=== PATIENT | female | born 2000 | race Caucasian/White ===

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

== ENCOUNTER 2018-06-17 10:47 | Emergency (ER) | payer BC, OTHER ==
[2018-06-17] MEDS ORDERED: NS 1,000 ML IV ONE (11:15)
[2018-06-17] MEDS ORDERED: fentaNYL 100 MCG/2 ML INJ IVP ONE (11:15)
[2018-06-17] MEDS ORDERED: ONDANSETRON 4 MG/2 ML VIAL IVP ONE (11:15)
[2018-06-17 11:21] LABS: PLATELET COUNT 225 10^3/uL (150-400)
--- NOTE | 2018-06-17 11:21 | EDPHY ---
H & P Stated Complaint: Sudden onset sharp abd pain while sitting in class Time Seen by Provider: 06/17/18 11:02 HPI/ROS: Chief Complaint: Abdominal pain HPI: 17-year-old G0 woman had abrupt onset of right lower quadrant abdominal pain this morning while in class. She does not have a history of the same. Some nausea and vomiting. No diarrhea or constipation. Last menstrual cycle ended 3 weeks ago. She no vaginal discharge or spotting. She is not sexually active. No history of sexually transmitted infections in the past. No urinary urgency or frequency. It is worse when she moves around. It comes in waves. She was in her normal state of health just prior to the onset of pain. At worst is an 8/10. ROS: 10 systems were reviewed and were negative except those elements noted in the HPI. PMH: Denies Social History: No smoking, occasional alcohol, no recreational drug use Family History: non-contributory Physical Exam: Gen: Awake, Alert, No Distress HEENT: Nose: no rhinorrhea Eyes: PERRLA, EOMI Mouth: Moist mucosa Neck: Supple, no JVD Chest: nontender, lungs clear to auscultation Heart: S1, S2 normal, no murmur Abd: Soft, she has tenderness in the right lower quadrant at McBurney's point. Mild right adnexal tenderness, no upper abdominal pain, no left-sided abdominal pain., no guarding Back: no CVA tenderness, no midline tenderness Ext: no edema, non-tender Skin: no rash Neuro: CN II-XII intact, Sensation grossly intact, Strength 5/5 in bilateral upper and lower extremities - Personal History LMP (Females 10-55): 15-21 Days Ago Current Tetanus Diphtheria and Acellular Pertussis (TDAP): Yes - Medical/Surgical History Hx Asthma: No Hx Chronic Respiratory Disease: No Hx Diabetes: No Hx Cardiac Disease: No Hx Renal Disease: No Hx Cirrhosis: No Hx Alcoholism: No Hx HIV/AIDS: No Hx Splenectomy or Spleen Trauma: No Other PMH: denies - Social History Smoking Status: Never smoked Constitutional: Initial Vital Signs Temperature (C) 37.7 C 06/17/18 10:50 Heart Rate 112 H 06/17/18 10:50 Respiratory Rate 18 06/17/18 10:50 Blood Pressure 111/82 H 06/17/18 10:50 O2 Sat (%) 98 06/17/18 10:50 O2 Delivery Mode Room Air Allergies/Adverse Reactions: No Known Allergies Allergy (Verified 06/17/18 10:50) Home Medications: Medication Instructions Recorded Hydrocodone/Acetaminophen 1 - 2 each PO Q4-6PRN PRN #10 06/17/18 [Hydrocodon-Acetaminophen 5-325] tablet Ondansetron Odt [Zofran Odt 4 mg 4 mg PO Q4 PRN #10 tab 06/17/18 (*)] Medical Decision Making - Diagnostics Imaging Results: Imaging Impressions Abdomen Ultrasound 06/17/18 11:14 Impression: Appendix not identified. Findings and recommendations discussed with Emergency Department physician, Mango Smith MD, at 1302 hour, 06/17/2018. Final report concurs with initial preliminary interpretation. Pelvic/Renal Ultrasound 06/17/18 11:14 Impression: 1. Right ovarian complex cystic lesion measuring 2.6 x 2.3 x 1.9 cm which may represent a hemorrhagic cyst, but is nonspecific. 2. No ovarian torsion. 3. Small amount of right lower quadrant free fluid. 4. Consider follow-up ultrasound imaging in 8-12 weeks. Findings and recommendations discussed with Emergency Department physician, Mango Smith MD, at 1306 hour, 06/17/2018. Final report concurs with initial preliminary interpretation. Imaging: Discussed imaging studies w/ mail caller Radiologist ED Course/Re-evaluation: Patient's pain improved after fentanyl. Appendix is not visualized but she does have a right hemorrhagic cyst with some free fluid. I have discussed with her at length that this is most likely the cause of her pain. Cannot entirely rule out appendicitis without a CT scan but I do not think that this is indicated at this time. The patient understands and is comfortable with this plan. Will discharge on anti-inflammatories, referral to OBGYN. Will also discharge with some nausea medication as well. She will return for any concerns. - Data Points Laboratory Results: Laboratory Results 06/17/18 11:00 06/17/18 11:00 06/17/18 06/17/18 11:00 11:00 WBC 11.01 10^3/uL H 10^3/uL (3.80-9.50) RBC 4.74 10^6/uL 10^6/uL (4.18-5.33) Hgb 15.5 g/dL g/dL (12.6-16.3) Hct 43.9 % % (38.0-47.0) MCV 92.6 fL fL (81.5-99.8) MCH 32.7 pg pg (27.9-34.1) MCHC 35.3 g/dL g/dL (32.4-36.7) RDW 11.9 % % (11.5-15.2) Plt Count 225 10^3/uL 10^3/uL (150-400) MPV 9.7 fL fL (8.7-11.7) Neut % (Auto) 83.0 % H % (39.3-74.2) Lymph % (Auto) 7.5 % L % (15.0-45.0) [place] % (Auto) 8.8 % % (4.5-13.0) Eos % (Auto) 0.1 % L % (0.6-7.6) Baso % (Auto) 0.3 % % (0.3-1.7) Nucleat RBC Rel Count 0.0 % % (0.0-0.2) Absolute Neuts (auto) 9.14 10^3/uL H 10^3/uL (1.70-6.50) Absolute Lymphs (auto) 0.83 10^3/uL L 10^3/uL (1.00-3.00) Absolute Monos (auto) 0.97 10^3/uL H 10^3/uL (0.30-0.80) Absolute Eos (auto) 0.01 10^3/uL L 10^3/uL (0.03-0.40) Absolute Basos (auto) 0.03 10^3/uL 10^3/uL (0.02-0.10) Absolute Nucleated RBC 0.00 10^3/uL 10^3/uL (0-0.01) Immature Gran % 0.3 % % (0.0-1.1) Immature Gran # 0.03 10^3/uL 10^3/uL (0.00-0.10) Sodium 135 mEq/L mEq/L (135-145) Potassium 4.2 mEq/L mEq/L (3.3-5.0) Chloride 101 mEq/L mEq/L (97-110) Carbon Dioxide 22 mEq/l mEq/l (22-31) Anion Gap 12 mEq/L mEq/L (8-16) BUN 9 mg/dL mg/dL (7-23) Creatinine 0.8 mg/dL mg/dL (0.6-1.0) Estimated GFR > 60 Glucose 98 mg/dL mg/dL (70-100) Calcium 9.9 mg/dL mg/dL (8.5-10.4) Medications Given: Discontinued Medications Fentanyl (Sublimaze) 50 mcg IVP EDNOW ONE Stop: 06/17/18 11:16 Last Admin: 06/17/18 11:30 Dose: 50 mcg Sodium Chloride (Ns) 1,000 mls @ 0 mls/hr IV ONCE ONE; Wide Open PRN Reason: Protocol Stop: 06/17/18 11:16 Last Admin: 06/17/18 11:15 Dose: 1,000 mls Ondansetron HCl (Zofran) 4 mg IVP EDNOW ONE Stop: 06/17/18 11:16 Last Admin: 06/17/18 11:30 Dose: 4 mg Departure - Departure Disposition: Home, Routine, Self-Care Clinical Impression: Ovarian cyst Condition: Good Instructions: Ovarian Cyst (ED) Additional Instructions: Take ibuprofen, 600 mg every 8 hr. You may alternate with acetaminophen, 1000 mg every 8 hr. You may take hydrocodone with acetaminophen if the pain is not controlled. Do not take acetaminophen with the [place]. Follow up with OBGYN in 3-4 days for further evaluation. Return to the emergency department for increasing abdominal pain, fevers, chills , nausea, vomiting, or any other concerns. Referrals: NONE *PRIMARY CARE P,. [Primary Care Provider] - As per Instructions Dar Hackett MD [Medical Doctor] - As per Instructions Prescriptions: Hydrocodone/Acetaminophen [Hydrocodon-Acetaminophen 5-325] 1 - 2 each PO Q4- 6PRN PRN #10 tablet PRN Reason: Pain, Severe Ondansetron Odt [Zofran Odt 4 mg (*)] 4 mg PO Q4 PRN #10 tab PRN Reason: nausea
[2018-06-17 12:56] VITALS: BP 111/62
== END 2018-06-17 13:41 | disposition home or self-care (01) ==
DX: N83.201 Unspecified ovarian cyst, right side (principal); E86.9 Volume depletion, unspecified
CPT/HCPCS: 96374; J2405; J3010